=== PATIENT | male | born 1950 | race Caucasian/White ===

== ENCOUNTER 2021-02-17 09:40 | Inpatient (IN) | payer OTHER ==
[~2021-02-17] VITALS: Ht 182.9 cm; Wt 94.3 kg
[2021-02-17 10:16] LABS: Basophils # (auto) 0.1 10 ^3/uL (0-0.2); Basophils % (auto) 0.4 % (0.0-2.0); Eosinophils # (auto) 0 10 ^3/uL (0-0.8); Eosinophils % (auto) 0.1 % (0.0-7.0); Hematocrit 40.9 % (41.0-53.0); Hemoglobin 13.4 g/dL (13.5-17.5); Lymphocytes # (auto) 0.9 10 ^3/uL (0.4-5.4); Mean Corpuscular Hemoglobin 30.4 pg (28.0-32.0); Mean Corpuscular Hgb Conc. 32.8 g/dL (32.0-36.0); Mean Corpuscular Volume 92.6 fL (80.0-100.0); Monocytes # (auto) 0.8 10 ^3/uL (0-1.3); Monocytes % (auto) 4.3 % (0.0-12.0); Neutrophils % (auto) 90.2 % (37.0-80.0); Red Blood Cells 4.42 10^6/uL (4.5-5.90); Red Cell Distribution Width 16.7 % (11.8-14.3); White Blood Cell 18.8 10^3/uL (4.4-10.8)
[2021-02-17 10:37] LABS: Potassium 4.9 mmol/L (3.5-5.1)
[2021-02-17 10:46] LABS: Albumin 2.9 g/dL (3.4-5.0); BUN/Creatinine Ratio 35.4; Bilirubin, Total 0.5 mg/dL (0.2-1.0); Calcium 8.6 mg/dL (8.5-10.1); Total Protein 6.9 g/dL (6.4-8.2)
[2021-02-17 12:01] VITALS: BP 135/84
[2021-02-17] MEDS ORDERED: LORazepam 2MG/ML-1ML VIAL ONE ×2 (12:01→15:15)
[2021-02-17] MEDS ORDERED: IPRATROPIUM BROM 0.5 MG/2.5ML INH SOL NEB ONE (12:15)
[2021-02-17] MEDS ORDERED: cefTRIAXone 1GM/50ML D5W 50 ML IV ONE (12:15)
[2021-02-17] MEDS ORDERED: ALBUTEROL SULF 2.5 MG/0.5ML(0.5%) NEB SOLN NEB ONE (12:15)
[2021-02-17] MEDS ORDERED: methylPREDNISolone SOD SUCC 125 MG/2 ML VL IV ONE (12:15)
[2021-02-17] MEDS ORDERED: LORazepam 2MG/ML-1ML VIAL IV ONE ×2 (12:30→15:45)
[2021-02-17 13:35] VITALS: BP 118/68
[2021-02-17 15:20] VITALS: BP 123/48
[2021-02-17] MEDS ORDERED: ONDANSETRON HCL 4 MG/2 ML VIAL IV PRN (15:30)
[2021-02-17] MEDS ORDERED: MORPHINE SULF INJ 2 MG/ML SYRINGE 1ML IV PRN ×2 (15:30)
[2021-02-17] MEDS ORDERED: NITROGLYCERIN 0.4 MG SL TAB SL PRN (15:30)
[2021-02-17] MEDS ORDERED: dilTIAZem 25 MG/5 ML VIAL IV ONE (15:30)
[2021-02-17] MEDS ORDERED: ACETAMINOPHEN 500 MG TAB PO PRN (15:30)
[2021-02-17] MEDS ORDERED: HYDROcodone-ACET 5/325MG TAB PO PRN (15:30)
[2021-02-17] MEDS: BUDESONIDE (INHALATION) 0.5 MG/2 ML NEB NEB SCH (19:06)
[2021-02-17] MEDS: ALBUTEROL SULF 2.5 MG/0.5ML(0.5%) NEB SOLN NEB SCH (19:06)
[2021-02-17] MEDS: IPRATROPIUM BROM 0.5 MG/2.5ML INH SOL NEB SCH (19:06)
[2021-02-17] MEDS: dilTIAZem 125mg/125ml BAG KIT 125 ML IV SCH (20:25)
[2021-02-17 22:11] VITALS: BP 121/80
[2021-02-17] MEDS: PIPERACILLIN-TAZOB 3.375GM 100 ML IV SCH (22:30)
[2021-02-17] MEDS: methylPREDNISolone SOD SUCC 125 MG/2 ML VL IV SCH (22:30)
[2021-02-18] MEDS ORDERED: SODIUM CHLORIDE 0.9% 1,000 ML IV ONE (02:45)
[2021-02-18] MEDS: IPRATROPIUM BROM 0.5 MG/2.5ML INH SOL NEB SCH ×3 (03:36→18:48)
[2021-02-18] MEDS: ALBUTEROL SULF 2.5 MG/0.5ML(0.5%) NEB SOLN NEB SCH ×3 (03:36→18:48)
[2021-02-18 03:46] VITALS: BP 108/71
[2021-02-18] MEDS: PIPERACILLIN-TAZOB 3.375GM 100 ML IV SCH ×3 (06:00→22:20)
[2021-02-18 07:37] LABS: Hematocrit 38.5 % (41.0-53.0); Hemoglobin 12.5 g/dL (13.5-17.5); Mean Corpuscular Hemoglobin 30.9 pg (28.0-32.0); Mean Corpuscular Hgb Conc. 32.5 g/dL (32.0-36.0); Mean Corpuscular Volume 94.9 fL (80.0-100.0); Red Blood Cells 4.06 10^6/uL (4.5-5.90); Red Cell Distribution Width 16.9 % (11.8-14.3); White Blood Cell 12.1 10^3/uL (4.4-10.8)
[2021-02-18 07:48] LABS: Potassium 4.7 mmol/L (3.5-5.1)
[2021-02-18 07:53] LABS: Band Neutrophils % (manual) 0; Basophils % (manual) 0 (0.0-2.0); Blast Cells 0; Eosinophils % (manual) 0 (0-7); Promyelocytes % 0; Reactive Lymphocytes 0
[2021-02-18 07:57] LABS: BUN/Creatinine Ratio 36.7; Calcium 7.9 mg/dL (8.5-10.1)
[2021-02-18 08:14] LABS: Lymphocytes % (manual) 2 (10.0-50.0); Metamyelocytes % 1; Monocytes % (manual) 3 (0-12); Myelocytes % 1
[2021-02-18] MEDS: BUDESONIDE (INHALATION) 0.5 MG/2 ML NEB NEB SCH ×2 (10:00→18:48)
[2021-02-18] MEDS ORDERED: AMIODARONE HCL 150 MG in D5W 5% 100 ML IV ONE (10:15)
[2021-02-18] MEDS: ENOXAPARIN SOD 40 MG/0.4 ML SYRINGE SC SCH (10:21)
[2021-02-18] MEDS: methylPREDNISolone SOD SUCC 125 MG/2 ML VL IV SCH ×2 (10:21→22:20)
[2021-02-18] MEDS ORDERED: AMIODARONE 450mg/250ml AE 250 ML IV SCH (10:30)
[2021-02-18] MEDS ORDERED: AMIODARONE HCL (50 MG/ ML) 3 ML VIAL IV ONE (10:34)
[2021-02-18] MEDS ORDERED: PANTOPRAZOLE 40 MG/10 ML VIAL INJ IV ONE (10:45)
[2021-02-18] MEDS ORDERED: AZITHROMYCIN 500MG/ 250ML 250 ML IV ONE (10:45)
[2021-02-18] MEDS ORDERED: FUROSEMIDE 40 MG/4 ML VIAL IV ONE (10:45)
[2021-02-18] MEDS ORDERED: METOPROLOL TARTRATE 25 MG TAB PO ONE (11:00)
[2021-02-18] MEDS: GABAPENTIN 100 MG CAP PO SCH ×2 (14:11→22:21)
[2021-02-18] MEDS: AMIODARONE 450mg/250ml AE 250 ML IV SCH (16:39)
[2021-02-18] MEDS: dilTIAZem 125mg/125ml BAG KIT 125 ML IV SCH (18:45)
[2021-02-18 20:32] LABS: Urine Bacteria FEW /hpf (None Seen); Urine Blood 1+ /uL (Negative); Urine Hyaline Cast FEW /lpf (0 - 2); Urine Mucus FEW (None Seen); Urine Specific Gravity 1.013 (1.001-1.035); Urine WBC 2 /hpf (0 - 3)
[2021-02-18] MEDS: METOPROLOL TARTRATE 25 MG TAB PO SCH (22:20)
[2021-02-19] MEDS: ALBUTEROL SULF 2.5 MG/0.5ML(0.5%) NEB SOLN NEB SCH ×4 (02:20→18:00)
[2021-02-19] MEDS: IPRATROPIUM BROM 0.5 MG/2.5ML INH SOL NEB SCH ×4 (02:20→18:43)
[2021-02-19 04:54] LABS: Hematocrit 36.6 % (41.0-53.0); Hemoglobin 12.3 g/dL (13.5-17.5); Mean Corpuscular Hemoglobin 30.8 pg (28.0-32.0); Mean Corpuscular Hgb Conc. 33.5 g/dL (32.0-36.0); Red Blood Cells 3.98 10^6/uL (4.5-5.90); Red Cell Distribution Width 16.3 % (11.8-14.3); White Blood Cell 15.7 10^3/uL (4.4-10.8)
[2021-02-19 05:04] LABS: Calcium 7.7 mg/dL (8.5-10.1); Magnesium 1.8 mg/dL (1.6-2.6); Potassium 4.5 mmol/L (3.5-5.1)
[2021-02-19 05:05] LABS: Basophils % (manual) 0 (0.0-2.0); Blast Cells 0; Eosinophils % (manual) 0 (0-7); Lymphocytes % (manual) 0 (10.0-50.0); Metamyelocytes % 0; Promyelocytes % 0; Reactive Lymphocytes 0
[2021-02-19] MEDS: PIPERACILLIN-TAZOB 3.375GM 100 ML IV SCH ×3 (06:08→23:26)
[2021-02-19] MEDS: GABAPENTIN 100 MG CAP PO SCH ×3 (06:08→21:28)
[2021-02-19] MEDS: BUDESONIDE (INHALATION) 0.5 MG/2 ML NEB NEB SCH ×2 (06:26→18:43)
[2021-02-19 07:07] LABS: Band Neutrophils % (manual) 8; Monocytes % (manual) 4 (0-12); Myelocytes % 1
[2021-02-19] MEDS: AMIODARONE 450mg/250ml AE 250 ML IV SCH ×2 (07:55→22:22)
[2021-02-19] MEDS ORDERED: METOPROLOL TARTRATE 1MG/1ML-5ML VIAL IV ONE (10:00)
[2021-02-19] MEDS: FUROSEMIDE 40 MG/4 ML VIAL IV SCH ×2 (10:00→11:12)
[2021-02-19] MEDS: ENOXAPARIN SOD 40 MG/0.4 ML SYRINGE SC SCH (10:06)
[2021-02-19] MEDS: METOPROLOL TARTRATE 25 MG TAB PO SCH ×2 (10:06→21:27)
[2021-02-19] MEDS: methylPREDNISolone SOD SUCC 125 MG/2 ML VL IV SCH (10:07)
[2021-02-19] MEDS: PANTOPRAZOLE 40 MG/10 ML VIAL INJ IV SCH (10:07)
[2021-02-19] MEDS: AZITHROMYCIN 500MG/ 250ML 250 ML IV SCH (11:11)
[2021-02-19] MEDS: METOPROLOL TARTRATE 1MG/1ML-5ML VIAL IV PRN ×2 (13:29→20:22)
[2021-02-19] MEDS ORDERED: VANCOMYCIN PER PHARMACY 0 MG IV SCH (14:30)
[2021-02-19 16:00] VITALS: BP 127/93
[2021-02-19] MEDS: VANCOMYCIN 1GM/250ML 250 ML IV SCH (17:08)
[2021-02-19 22:00] VITALS: BP 123/80
[2021-02-19] MEDS ORDERED: DIGOXIN (250MCG/ML) 2 ML AMPULE IV ONE (22:45)
[2021-02-19] MEDS: methylPREDNISolone SOD SUCC 40 MG/ML VL IV SCH (23:26)
[2021-02-20] MEDS ORDERED: DIGOXIN (250MCG/ML) 2 ML AMPULE IV ONE (03:15)
[2021-02-20] MEDS ORDERED: HALOPERIDOL LACTATE 5 MG/ML INJ VIAL IM PRN (04:45)
[2021-02-20] MEDS ORDERED: HALOPERIDOL LACTATE 5 MG/ML INJ VIAL IM ONE (04:45)
[2021-02-20] MEDS: VANCOMYCIN 1GM/250ML 250 ML IV SCH ×2 (04:58→16:28)
[2021-02-20 05:00] VITALS: BP 143/97
[2021-02-20 05:24] LABS: Hematocrit 37.6 % (41.0-53.0); Hemoglobin 12.5 g/dL (13.5-17.5); Mean Corpuscular Hemoglobin 30.3 pg (28.0-32.0); Mean Corpuscular Hgb Conc. 33.2 g/dL (32.0-36.0); Mean Corpuscular Volume 91.3 fL (80.0-100.0); Red Blood Cells 4.11 10^6/uL (4.5-5.90); Red Cell Distribution Width 16.1 % (11.8-14.3); White Blood Cell 15.3 10^3/uL (4.4-10.8)
[2021-02-20 05:42] LABS: Basophils % (manual) 0 (0.0-2.0); Blast Cells 0; Eosinophils % (manual) 0 (0-7); Myelocytes % 0; Promyelocytes % 0; Reactive Lymphocytes 0
[2021-02-20 05:46] LABS: Calcium 8.2 mg/dL (8.5-10.1); Potassium 4.7 mmol/L (3.5-5.1)
[2021-02-20 05:49] LABS: BUN/Creatinine Ratio 38.5; Magnesium 2.3 mg/dL (1.6-2.6)
[2021-02-20] MEDS: PIPERACILLIN-TAZOB 3.375GM 100 ML IV SCH ×3 (06:25→22:28)
[2021-02-20] MEDS: GABAPENTIN 100 MG CAP PO SCH ×3 (06:26→22:01)
[2021-02-20] MEDS: IPRATROPIUM BROM 0.5 MG/2.5ML INH SOL NEB SCH ×3 (06:43→19:04)
[2021-02-20] MEDS: BUDESONIDE (INHALATION) 0.5 MG/2 ML NEB NEB SCH ×2 (06:43→19:04)
[2021-02-20] MEDS: ALBUTEROL SULF 2.5 MG/0.5ML(0.5%) NEB SOLN NEB SCH ×3 (06:43→19:04)
[2021-02-20 07:07] LABS: Band Neutrophils % (manual) 2; Lymphocytes % (manual) 1 (10.0-50.0); Metamyelocytes % 1; Monocytes % (manual) 2 (0-12)
[2021-02-20 09:35] VITALS: BP 131/73
[2021-02-20] MEDS: PANTOPRAZOLE 40 MG/10 ML VIAL INJ IV SCH (09:48)
[2021-02-20] MEDS: methylPREDNISolone SOD SUCC 40 MG/ML VL IV SCH ×2 (09:48→21:59)
[2021-02-20] MEDS: ENOXAPARIN SOD 40 MG/0.4 ML SYRINGE SC SCH (09:48)
[2021-02-20] MEDS: AZITHROMYCIN 500MG/ 250ML 250 ML IV SCH (09:49)
[2021-02-20] MEDS: FUROSEMIDE 40 MG/4 ML VIAL IV SCH (09:49)
[2021-02-20] MEDS: METOPROLOL TARTRATE 25 MG TAB PO SCH ×2 (09:49→22:00)
[2021-02-20] MEDS ORDERED: AMIODARONE HCL 200 MG TAB PO ONE (12:15)
[2021-02-20 13:41] VITALS: BP 148/78
[2021-02-20 16:57] VITALS: BP 150/90
[2021-02-20] MEDS: AMIODARONE HCL 200 MG TAB PO SCH (21:59)
[2021-02-20 22:00] VITALS: BP 107/55
[2021-02-21 02:14] VITALS: BP 115/77
[2021-02-21 05:00] VITALS: BP 137/84
[2021-02-21] MEDS: PIPERACILLIN-TAZOB 3.375GM 100 ML IV SCH (05:23)
[2021-02-21] MEDS: GABAPENTIN 100 MG CAP PO SCH ×2 (06:00→14:52)
[2021-02-21] MEDS: IPRATROPIUM BROM 0.5 MG/2.5ML INH SOL NEB SCH ×2 (06:18→11:35)
[2021-02-21] MEDS: BUDESONIDE (INHALATION) 0.5 MG/2 ML NEB NEB SCH (06:18)
[2021-02-21] MEDS: ALBUTEROL SULF 2.5 MG/0.5ML(0.5%) NEB SOLN NEB SCH ×2 (06:18→11:35)
[2021-02-21] MEDS: VANCOMYCIN 1GM/250ML 250 ML IV SCH (06:57)
[2021-02-21] MEDS: AMIODARONE HCL 200 MG TAB PO SCH (09:11)
[2021-02-21] MEDS: METOPROLOL TARTRATE 25 MG TAB PO SCH (09:12)
[2021-02-21] MEDS: AZITHROMYCIN 500MG/ 250ML 250 ML IV SCH (09:12)
[2021-02-21] MEDS: methylPREDNISolone SOD SUCC 40 MG/ML VL IV SCH (09:13)
[2021-02-21] MEDS: PANTOPRAZOLE 40 MG/10 ML VIAL INJ IV SCH (09:13)
[2021-02-21] MEDS: FUROSEMIDE 40 MG/4 ML VIAL IV SCH (09:13)
[2021-02-21] MEDS: ENOXAPARIN SOD 40 MG/0.4 ML SYRINGE SC SCH (09:13)
[2021-02-21] MEDS ORDERED: DIGOXIN (250MCG/ML) 2 ML AMPULE IV ONE (10:30)
[2021-02-21 15:19] VITALS: BP 126/58
== END 2021-02-21 17:25 | disposition hospice, home (50) | DRG 189 ==
LOC: ER 09:40 → EDBD 09:40 → TELE 15:34 → TELE-CENTR 02-18 15:01 → TELE 02-18 15:26 → TELE-CENTR 02-19 15:04
PROVIDERS: ADMIT Nurse Practitioner Acute Care; ATTEND Internal Medicine Geriatric Medicine
PROC: 05HD33Z Insertion of Infusion Device into Right Cephalic Vein, Percutaneous Approach (ICD-10-PCS; principal; 2021-02-18)
PROC: B54MZZA Ultrasonography of Right Upper Extremity Veins, Guidance (ICD-10-PCS; 2021-02-18)
DX: J96.22 Acute and chronic respiratory failure with hypercapnia (principal); J44.1 Chronic obstructive pulmonary disease with (acute) exacerbation; I48.92 Unspecified atrial flutter; J98.11 Atelectasis; E44.0 Moderate protein-calorie malnutrition; J96.21 Acute and chronic respiratory failure with hypoxia; Z51.5 Encounter for palliative care; Z66 Do not resuscitate; Z20.822 Contact with and (suspected) exposure to COVID-19; G47.30 Sleep apnea, unspecified; I11.0 Hypertensive heart disease with heart failure; Z79.01 Long term (current) use of anticoagulants; Z79.899 Other long term (current) drug therapy; Z68.28 Body mass index [BMI] 28.0-28.9, adult
CPT/HCPCS: 36415; 36600; 71045; 80048; 80053; 80202; 81001; 82805; 83605; 83735; 83880; 84484; 85007; 85025; 85027; 85379; 87040; 87081; 87426; 93005; 94640; 94660; 96361; 96365; 96366; 96367; 96372; 96375; 96376; 99291; C9113; G0378; J0696; J2543; J7060